=== PATIENT | male | born 1985 | race Caucasian/White ===

== ENCOUNTER 2021-11-03 06:04 | Outpatient (REF) | payer BC, SELFPAY ==
[2021-11-03 06:18] LABS: MANUAL DIFF FLAG NO
[2021-11-03 07:32] LABS: Basophils Absolute Auto 0.1 X10*3/uL (0.0-0.2); Basophils Percent Auto 0.8 % (0-2); Eosinophils Absolute Auto 0.2 X10*3/uL (0.0-0.4); Eosinophils Percent Auto 2.5 % (0-4); Hematocrit 46.9 % (42.0-52.0); Hemoglobin 15.9 g/dl (14.0-18.0); Imm Gran Abs Auto 0.04 X10*3/uL (0.00-0.03); Imm Gran Pct Auto 0.6 % (0.0-0.4); Lymphocytes Absolute Auto 2.4 X10*3/uL (1.2-4.9); Lymphocytes Percent Auto 38.4 % (20-40); Mean Corpuscular HGB Conc 33.9 g/dl (31.0-36.0); Mean Corpuscular Hemoglobin 28.1 pg (27.0-33.0); Mean Platelet Volume 10.6 fL (9.4-12.4); Monocytes Absolute Auto 0.5 X10*3/uL (0.1-1.2); Monocytes Percent Auto 7.9 % (2-11); Neutrophils Absolute Auto 3.1 x10*3/uL (2.0-8.3); Neutrophils Percent Auto 49.8 % (45-73); Platelet Count 216 X10*3/uL (160-400); Red Blood Count 5.65 X10*6/uL (4.60-5.80); Red Cell Distribution Width 12.6 % (11.0-16.0); White Blood Count 6.3 X10*3/uL (4.8-10.8)
[2021-11-03 08:05] LABS: Alanine Aminotransferase 82 U/L (0-40); Albumin Level 4.7 g/dL (3.5-5.0); Alkaline Phosphatase 58 U/L (39-117); Anion Gap 15 (12-20); Aspartate Amino Transferase 39 U/L (5-37); Bilirubin Total 0.9 mg/dL (0.0-1.0); Blood Urea Nitrogen 13 mg/dL (9-16); Calcium 9.7 mg/dL (8.4-10.2); Carbon Dioxide 26 mmol/L (22-29); Chloride 104 mmol/L (96-108); Cholesterol 78 mg/dL; Estimated Glomerular Filt Rate > 60; Glucose Fasting 86 mg/dL (60-99); HDL Cholesterol 45 mg/dL; LDL Cholesterol Calculated 29 mg/dl; Potassium 4.3 mmol/L (3.3-5.1); Sodium 141 mmol/L (135-145); Total Protein 7.2 g/dL (6.5-8.0); Triglycerides 24 mg/dL
== END 2021-11-03 06:05 | disposition home or self-care (01) ==
LOC: HO.LAB 06:04
PROVIDERS: PCP Internal Medicine; Visit Provider Internal Medicine
DX: Z00.00 Encounter for general adult medical examination without abnormal findings (principal)
CPT/HCPCS: 36415; 80053; 80061; 85025

== ENCOUNTER 2022-02-21 08:00 | Outpatient (REF) | payer OTHER, SELFPAY ==
--- NOTE | ~2022-02-21 | US_ITS ---
EXAMINATION: US VENOUS ULTRASOUND WITH DOPPLER LOWER EXTREMITY, BILATERAL CLINICAL INFORMATION: Varicose veins of right lower extremity with inflammation COMPARISON: None TECHNIQUE: Ultrasound of the deep veins is performed from the hip to the calf with compression sonography and color and pulse Doppler assessment. Spectral analysis with color-flow imaging is performed. FINDINGS: RIGHT: There is normal venous compression and respiratory variation and augmented flow. The visualized common femoral vein, superficial femoral vein, profunda femoral vein, popliteal vein, and the trifurcation region shows no evidence of deep venous thrombosis. There is no significant popliteal fossa cyst. LEFT: There is normal venous compression and respiratory variation and augmented flow. The visualized common femoral vein, superficial femoral vein, profunda femoral vein, popliteal vein, and the trifurcation region shows no evidence of deep venous thrombosis. There is no significant popliteal fossa cyst. If the patient's symptoms persist, followup ultrasound in 5 days 7 days might be of value to exclude proximal propagation from a non-visualized calf vein. US/US venous duplex LE BI IMPRESSION: No DVT demonstrated in the bilateral lower extremity.
== END 2022-02-21 08:01 | disposition home or self-care (01) ==
LOC: HO.US 08:00
PROVIDERS: Visit Provider Surgery Vascular Surgery
DX: I83.11 Varicose veins of right lower extremity with inflammation (principal)
CPT/HCPCS: 93970

== ENCOUNTER 2022-04-07 06:03 | Day surgery (SDC) | payer OTHER, SELFPAY ==
[2022-03-31 16:10] VITALS: BMI 29.8
--- NOTE | 2022-04-06 09:43 | HO.ANESPROP2 ---
Documented by User: Allyson Eli NP 04/06/22 09:44 HPI - Anesthesia Eval Consult details Narrative: 37yo M for Hernia Repair Umbilical possible mesh PMFSH Active Problems Active Problems: All Active Problems (Updated 03/31/22 @ 16:09 by Yudi Blum, RN) Edema of right lower extremity due to peripheral venous insufficiency (Acute) Umbilical hernia (Acute) Varicose veins of right lower extremity with inflammation (Acute) Leg pain (Acute) Past Medical History Medical History Mild heartburn Family History Family History Maternal Grandfather Lung cancer Surgical History Surgical History (Updated 03/31/22 @ 16:09 by Yudi Blum RN) H/O wisdom tooth extraction Hx of tooth extraction Social History Social History Are you a primary skin care instructor to a significant other at home: No Do you presently have visiting nurse or other home services: No Alcohol intake: former Year quit: 2019 Patient Tobacco Use Status: Never used Tobacco Use of substances other than those prescribed or required for medical reasons: No Have you been hit, kicked, punched, or otherwise hurt by someone within the past year? If so, by whom?: No Are you DNR?: No Advance Directives: No Advance Directives Information Provided: Yes Advance Directives on File: No Recently lost weight without trying: No Meds Allergies Allergy/AdvReac Type Severity Reaction Status Date / Time No Known Allergies Allergy Verified 03/31/22 16:09 Home Medications Medication Instructions Recorded Confirmed Last Taken Type No Known Home Meds 10/29/21 03/31/22 Unknown History Exam Exam Date and Time: April 06, 2022 0943 Height,Weight and Vital Signs: Height 6 ft Weight 99.79 kg Pertinent Lab Results Pertinent Lab Results: Laboratory Tests 11/03/21 11/03/21 06:17 06:17 WBC 6.3 Hgb 15.9 Hct 46.9 Plt Count 216 Sodium 141 Potassium 4.3 Chloride 104 Carbon Dioxide 26 BUN 13 Creatinine 1.13 Assessment and Plan Assessment Anesthesia Assessment: Chart Reviewed Documented by User: Ian Iraheta MD 04/07/22 07:31 PMF Past Medical History Medical History Mild heartburn Family History Family History Maternal Grandfather Lung cancer Family history of problems with anesthesia: No Surgical History Surgical History (Updated 03/31/22 @ 16:09 by Yudi Blum RN) H/O wisdom tooth extraction Hx of tooth extraction History of Problems with Anesthesia: No Social History Social History Are you a primary skin care instructor to a significant other at home: No Do you presently have visiting nurse or other home services: No Alcohol intake: former Year quit: 2019 Patient Tobacco Use Status: Never used Tobacco Use of substances other than those prescribed or required for medical reasons: No Have you been hit, kicked, punched, or otherwise hurt by someone within the past year? If so, by whom?: No Are you DNR?: No Advance Directives: No Advance Directives Information Provided: Yes Advance Directives on File: No Recently lost weight without trying: No Meds Allergies Allergy/AdvReac Type Severity Reaction Status Date / Time No Known Allergies Allergy Verified 03/31/22 16:09 Home Medications Medication Instructions Recorded Confirmed Last Taken Type No Known Home Meds 10/29/21 03/31/22 Unknown History Exam Airway Mallampati Class: I TM Dist: >3cm Neck ROM: Full Assessment and Plan Final Anesthetic Review Family History of Problems with Anesthesia: No History of Problems with Anesthesia: No NPO: Yes ASA Class: I Final Preanesthetic Review: Meds/Allgs Chart Reviewed, Consent Obtained/Reviewed and Anes Risks/Benef Reviewed Patient Risk: Intermediate Procedure Risk: Intermediate Anesthetic Plan Anesthetic Plan: GA Disposition: Standard PACU
[2022-04-07] VITALS (7 sets, daily range): BP systolic 116–148; BP diastolic 78–106; PULSE 73–93; RESP 14–18; TEMP 36.2–36.5; O2SAT 96–98
[2022-04-07] MEDS: Lactated Ringers 1,000 ML 100 ML IVCONT (06:34)
--- NOTE | 2022-04-07 07:16 | P.OP_ITS ---
Operative Note Operative Note Date of Service: 04/07/22 Narrative: Preop diagnosis: [Umbilical hernia] Postop diagnosis: [same 8mm umbilical defect] Procedure: [Open umbilical hernia repair] Surgeon: Edgardo James MD Assist: [none] Anesthesia: [General, LMA; local: Bupivicaine, 0.5% with epi] Estimated blood loss: [3cc] Specimen: [none] Intraoperative findings: [An 8 mm umbilical fascia defect with viable properitoneal fat was closed primarily with 1 polypropylene suture] Indications: [The patient is a 37-year-old gentleman with a symptomatic umbilical hernia that is slowly been enlarging. He reports that his weight is stable and the options of continued observation versus operative repair were reviewed. Activity restrictions and the inherent risks of bleeding, infection, hernia recurrence especially in the setting of weight gain, and the possible need for a mesh repair and mesh related complications such as infection or pain. The patient seemed understand all of his options, declined a 2nd opinion wanted to proceed. 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 His abdomen was clipped and scrubbed in the usual manner. 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 He was brought into the operating suite and placed supine on the table then induced in general anesthesia via LMA administered with excellent effect. His abdomen was widely prepped and draped in use arm INR using Chloraprep. Preemptive local was infiltrated into the skin and subcutaneous tissues and a curvilinear infraumbilical incision made sharply and carried into the subcutaneous tissues. Hemostasis was obtained with cautery. Careful dissection removing the dermis of the umbilicus off of the hernia was performed. Properitoneal fat that was viable was circumferentially dissected at the umbilical ring and reduced. Fascial margins were freshened and since the defect was 8 mm, primary closure using 1 Polypropylene was performed with good tissue approximation. The area was inspected for hemostasis and the dermis of the umbilicus tacked down to the fascia. The skin was then closed with interrupted 4-0 Monocryl subcuticular sutures, the abdomen washed and dried, Mastisol and Steri-Strips applied follo wed by a cotton ball and a 4 x 6 in Tegaderm. Patient tolerated the procedure well was sent extubated the recovery in stable condition. All sponge instrument counts were correct x2. At the patient's request, I called his mother and [phone] to apprise her of the operation. Questions were answered.]
--- NOTE | 2022-04-07 07:16 | MHC.SHP ---
Pre-Procedural Eval Section A Date of Service: 04/07/22 The patient is an INPATIENT: No The History & Physical has been completed within 30 days and I have reviewed it.: Yes Section B Chief Complaint: Umbilical hernia without obstruction or gangrene Allergies: Allergies Allergy/AdvReac Type Severity Reaction Status Date / Time No Known Allergies Allergy Verified 03/31/22 16:09 Plan I have reviewed the history and physical and performed a pertinent physical examination on my patient. No changes have occurred unless specified. Time Spent With Patient Time: Total time managing care of this patient today ____ minutes.
== END 2022-04-07 09:47 | disposition home or self-care (01) ==
LOC: HO.SSS 06:03
PROVIDERS: PCP Internal Medicine; Visit Provider Surgery
PROC: (CPT 49593; principal; 2022-04-07 07:30)
DX: K42.9 Umbilical hernia without obstruction or gangrene (principal); R12 Heartburn; Z87.891 Personal history of nicotine dependence
CPT/HCPCS: 49593; J0690; J1100; J1885; J2405; J2795; J3010

== ENCOUNTER → 2022-04-15 09:01 | Outpatient (BNVA) | payer OTHER, SELFPAY | PROVIDERS: PCP Internal Medicine; Visit Provider Surgery | DX: Z13.89 Encounter for screening for other disorder (principal) ==